=== PATIENT | male | born 1995 | race African-American/Black ===

== ENCOUNTER 2017-04-14 11:11 | Emergency (ER) | payer MEDICAID ==
[2017-04-14 11:22] VITALS: BP 145/80
[2017-04-14] MEDS ORDERED: Acetaminophen/oxyCODONE 325-5 MG Tab PO ONE (11:40)
--- NOTE | 2017-04-14 11:50 | EDM.PDOC ---
ED HPI GENERAL MEDICAL PROBLEM - General Chief Complaint: Lower Extremity Injury/Pain Stated Complaint: RIGHT LEG PAIN Time Seen by Provider: 04/14/17 11:30 Source of Information: Reports: Patient History Limitations: Reports: No Limitations - History of Present Illness INITIAL COMMENTS - FREE TEXT/NARRATIVE: 21-year-old male presents for evaluation and treatment of right leg pain. Patient reports the pain first started about 4 days ago. He reports pain in the right calf, swelling, and decreased range of motion due to pain and bruising. He denies any chest pain or shortness of breath. Over the last 4 days the patient has been driving to [place] from [place]. He is now relocated to [place]. Patient has a history of DVT. Last DVT was about 4 years ago. States that this feels similar to the previous DVT. He is unsure if he has any coagulation disorders such as von Willebrand's, protein C or protein S. Previously was on Coumadin. States that he was started on xeralto but was later switched to Coumadin. This was bridged with Lovenox. He went off the Coumadin about one year ago. He states that his family doctor told him to take a full 325 aspirin 2 to 3 times a day. He states that he has not been taking this as told. States over the last few days he has taken a few 81 mg aspirin. This has not helped with the pain. Treatments PROMOTIONAL REPRESENTATIVE: Reports: Other (see below) Other Treatments PROMOTIONAL REPRESENTATIVE: took 81 mg this morning of aspirin Right Leg Pain Score (Numeric/FACES): 10 - Related Data Allergies Allergy/AdvReac Type Severity Reaction Status Date / Time No Known Allergies Allergy Verified 04/14/17 11:26 Home Meds: Home Meds Acetaminophen/oxyCODONE [Percocet 325-5 MG] 1 tab PO Q4H #20 tablet 04/14/17 [Rx ] Apixaban [Eliquis] 5 mg PO BID #60 tablet 04/14/17 [Rx] Past Medical History Cardiovascular History: Reports: Other (See Below) Other Cardiovascular History: DVT Social & Family History - Tobacco Use Smoking Status *Q: Never Smoker - Caffeine Use Caffeine Use: Reports: Soda, Tea - Recreational Drug Use Recreational Drug Type: Reports: Marijuana/Hashish Review of Systems - Review of Systems Review Of Systems: See Below Respiratory: Denies: Shortness of Breath Cardiovascular: Denies: Chest Pain Musculoskeletal: Reports: Leg Pain (right), Other (right leg swelling) Skin: Reports: Bruising (right calf) ED EXAM, GENERAL - Physical Exam Exam: See Below Exam Limited By: No Limitations General Appearance: Alert, WD/WN, No Apparent Distress Respiratory/Chest: No Respiratory Distress Cardiovascular: Normal Peripheral Pulses, Regular Rate, Rhythm Peripheral Pulses: 2+: Posterior Tibial (L), Posterior Tibial (R), Dorsalis Pedis (L), Dorsalis Pedis (R) Extremities: Zenaida's Sign (right), Leg Pain (right), Other (right leg swelling) Neurological: Alert, Oriented, Normal Cognition Psychiatric: Normal Affect, Normal Mood Skin Exam: Warm, Dry, Intact, Ecchymosis (right proximal medial lower leg) Course - Vital Signs Last Recorded V/S: Last Vital Signs Temp 37.3 C 04/14/17 11:21 Pulse 102 H 04/14/17 11:21 Resp 20 04/14/17 11:21 BP 145/80 H 04/14/17 11:21 Pulse Ox 95 04/14/17 11:21 - Orders/Labs/Meds Orders: Active Orders 24 hr Category Date Time Status VL Duplex Lwr Ext Veins Ltd Rt [US] Stat Exams 04/14/17 11:40 Taken Labs: Laboratory Tests 04/14/17 04/14/17 04/14/17 Range/Units 11:51 11:51 11:51 WBC 13.07 H (4.23-9.07) K/mm3 RBC 4.60 L (4.63-6.08) M/mm3 Hgb 13.5 L (13.7-17.5) gm/L Hct 40.6 (40.1-51.0) % MCV 88.3 (79.0-92.2) fl MCH 29.3 (25.7-32.2) pg MCHC 33.3 (32.2-35.5) g/dl RDW Std Deviation 43.0 (35.1-43.9) fL Plt Count 163 (163-337) K/mm3 MPV 10.1 (9.4-12.3) fl Neut % (Auto) 75.6 H (34.0-67.9) % Lymph % (Auto) 13.3 L (21.8-53.1) % [place] % (Auto) 10.6 (5.3-12.2) % Eos % (Auto) 0.2 L (0.8-7.0) Baso % (Auto) 0.1 (0.1-1.2) % Neut # (Auto) 9.89 H (1.78-5.38) K/mm3 Lymph # (Auto) 1.74 (1.32-3.57) K/mm3 [place] # (Auto) 1.38 H (0.30-0.82) K/mm3 Eos # (Auto) 0.03 L (0.04-0.54) K/mm3 Baso # (Auto) 0.01 (0.01-0.08) K/mm3 PT 12.3 (8.0-13.0) SECONDS INR 1.12 APTT 30 (22-36) SECONDS Sodium 139 (136-145) mEq/L Potassium 3.2 L (3.5-5.1) mEq/L Chloride 100 (98-107) mEq/L Carbon Dioxide 30 (21-32) mEq/L Anion Gap 12.2 (5-15) BUN 9 (7-18) mg/dL Creatinine 1.1 (0.7-1.3) mg/dL Est Cr Clr Drug Dosing 112.19 mL/min Estimated GFR (MDRD) > 60 (>60) mL/min BUN/Creatinine Ratio 8.2 L (14-18) Glucose 93 (74-106) mg/dL Calcium 9.0 (8.5-10.1) mg/dL Total Bilirubin 1.0 (0.2-1.0) mg/dL AST 25 (15-37) U/L ALT 26 (16-63) U/L Alkaline Phosphatase 59 (46-116) U/L Total Protein 8.2 (6.4-8.2) g/dl Albumin 3.3 L (3.4-5.0) g/dl Globulin 4.9 gm/dL Albumin/Globulin Ratio 0.7 L (1-2) Meds: Medications Discontinued Medications Generic Name Dose Route Start Last Admin Trade Name Freq PRN Reason Stop Dose Admin Apixaban 10 mg 04/14/17 14:11 04/14/17 14:18 Eliquis PO 04/14/17 14:12 10 mg ONETIME ONE Administration Oxycodone/Acetaminophen 1 tab 04/14/17 11:40 04/14/17 11:49 Percocet 325-5 Mg PO 04/14/17 11:41 1 tab ONETIME ONE Administration - Radiology Interpretation Free Text/Narrative:: Ultrasound of the right leg impression per [facility]rad: deep venous thrombosis in the superficial femoral vain and popliteal vein - Re-Assessments/Exams Free Text/Narrative Re-Assessment/Exam: 04/14/17 14:32 labs returned. wbc is 13.07, hgb is 13.5 and plts are 163 sodium is 139, potassium is 3.2, chloride is 100. anion gap is 12.2. glucose is 93 pt is 12.3, INR is 1.12 ptt is 30 Reviewed the labs and ultrasound results with the patient. pain improved with the percocet. Plan to discharge home on eliquis, no bridging needed. Will send home with crutches for comfort. Follow-up with family med this week. Percocet for pain. Instructed to return to the ER immediately if he develops chest pain, shortness of breath, hemptysis, etc. Departure - Departure Time of Disposition: 14:40 Disposition: Home, Self-Care 01 Condition: Good Clinical Impression: Superficial thrombosis of lower extremity Qualifiers: Laterality: right Qualified Code(s): I82.811 - Embolism and thrombosis of superficial veins of right lower extremities Deep venous thrombosis Qualifiers: DVT location: lower extremity Affected thrombotic vein of extremity: other lower extremity vein Chronicity: acute Laterality: right Qualified Code(s): I82.491 - Acute embolism and thrombosis of other specified deep vein of right lower extremity - Discharge Information Prescriptions: Acetaminophen/oxyCODONE [Percocet 325-5 MG] 1 tab PO Q4H #20 tablet Apixaban [Eliquis] 5 mg PO BID #60 tablet Instructions: Deep Vein Thrombosis Referrals: PCP,Not In Area [Ordering Only Provider] - Liam Mendez [Physician] - Forms: ED Department Discharge Additional Instructions: you were given medication the ER that can affect your ability to drive and operate machinery. Do not drive or operate machinery within 12 hours of taking prescription narcotic pain medication. Take the eliquis as prescribed. 2 tabs or 10 mg twice a day for 1 week. first dose was given in the ER. Start your prescription tonight. After one week take 5 mg or 1 tab twice a day until instructed otherwise. Percocet 1 or 2 tabs every 4-6 hours as needed for severe pain. Percocet can be habit-forming, I recommend you take as few of these as needed to control your pain. Do not drive or operate machinery within 12 hours of taking the Percocet. Avoid massaging the leg, squeezing the leg or compressing the leg. No strenuous activity. No running, heavy lifting, etc. Crutches as needed to help avoid pain. Follow up with family medicine this week. Recommend Dr. Hays at the [facility]. Call [phone] to schedule with him. I recommend that you review your old records with him and if necessary you may require additional testing. Please return to the ER if your symptoms change or worsen. In particular like to see you for chest pain, shortness of breath, coughing up blood or any other concerning symptom. - My Orders Last 24 Hours: My Active Orders 04/14/17 11:40 VL Duplex Lwr Ext Veins Ltd Rt [US] Stat - Assessment/Plan Last 24 Hours: My Active Orders 04/14/17 11:40 VL Duplex Lwr Ext Veins Ltd Rt [US] Stat
[2017-04-14] MEDS ORDERED: Apixaban 5 MG Tab PO ONE (14:11)
--- NOTE | 2017-04-15 08:36 | US ---
Right lower extremity deep venous ultrasound: Duplex and color flow imaging was obtained of the right common femoral, greater saphenous, superficial femoral, popliteal, posterior tibial and peroneal veins. Left common femoral vein also was evaluated. Findings: Thrombus is identified within the superficial femoral vein and popliteal vein. Vessels below the knee are not optimally seen. Left common femoral vein is patent. Impression: 1. Findings compatible with deep venous thrombosis within the right superficial femoral and popliteal vein. This clot appears to be acute. Diagnostic code #5 Agree with preliminary report issued by [facility] ([facility] preliminary report dictated on 04/14/17, 3:00 PM Central Time)
== END 2017-04-14 14:42 | disposition home or self-care (01) ==
LOC: JD.ED 11:11
DX: I82.811 Embolism and thrombosis of superficial veins of right lower extremity (principal); I82.491 Acute embolism and thrombosis of other specified deep vein of right lower extremity
CPT/HCPCS: 36415; 80053; 85025; 85610; 85730; 93971; 99284; A9270

== ENCOUNTER 2017-04-17 11:11 | Emergency (ER) | payer MEDICAID ==
[2017-04-17] MEDS ORDERED: Enoxaparin 80 MG/0.8 ML Syringe SUBCUT ONE (12:20)
[2017-04-17] MEDS ORDERED: Sodium Chloride 0.9% 10 ML Syringe FLUSH PRN (12:20)
[2017-04-17] MEDS ORDERED: Acetaminophen/oxyCODONE 325-5 MG Tab PO ONE ×2 (12:33→12:35)
--- NOTE | 2017-04-17 12:33 | EDM.PDOC ---
ED HPI GENERAL MEDICAL PROBLEM - General Chief Complaint: Lower Extremity Injury/Pain Stated Complaint: R LEG PAIN DUE TO BLOOD CLOT Time Seen by Provider: 04/17/17 12:03 Source of Information: Reports: Patient, Old Records (recent ER visit) History Limitations: Reports: No Limitations - History of Present Illness INITIAL COMMENTS - FREE TEXT/NARRATIVE: 21-year-old male presents for treatment of the DVT. Patient was seen by myself in the ER on Saturday, April 13, 2017. He was found to have extensive DVT. He was given a 10 mg dose of eliquis here in the ER. He was prescribed eliquis, Percocet for pain and was provided with crutches as he felt it was too difficult to walk on. Patient presented today as he was unable to afford eliquis. He states he has been eating apples and garlic in the meantime an effort to thin his blood. He denies any current chest pain, shortness of breath, nausea, vomiting or abdominal pain. He reports continued pain and swelling to the right leg. Patient states that he feels he made a mistake leaving on Saturday. He feels that he should've been admitted to the hospital on Saturday. Patient has a history of DVT and was admitted to hospital four years ago for DVT. I educated him on his visit on Saturday that there would be no further intervention other than the eliquis and the pain medication, which he can take at home. Location: Reports: Lower Extremity, Right Right Leg Pain Score (Numeric/FACES): 8 - Related Data Allergies Allergy/AdvReac Type Severity Reaction Status Date / Time No Known Allergies Allergy Verified 04/17/17 11:18 Home Meds: Home Meds Acetaminophen/oxyCODONE [Percocet 325-5 MG] 1 tab PO Q4H #20 tablet 04/14/17 [Rx ] Apixaban [Eliquis] 5 mg PO BID #60 tablet 04/14/17 [Rx] Dabigatran Etexilate Mesylate [Pradaxa] 150 mg PO BID #60 capsule 04/17/17 [Rx] Enoxaparin Sodium [Lovenox] 80 mg SQ DAILY #3.2 ml 04/17/17 [Rx] Potassium Chloride 20 meq PO DAILY #5 tablet.er 04/17/17 [Rx] Past Medical History - Past Health History Medical/Surgical History: Denies Medical/Surgical History Cardiovascular History: Reports: Other (See Below) Other Cardiovascular History: DVT Social & Family History - Tobacco Use Smoking Status *Q: Never Smoker - Caffeine Use Caffeine Use: Reports: Soda, Tea - Recreational Drug Use Recreational Drug Use: No Recreational Drug Type: Reports: Marijuana/Hashish Review of Systems - Review of Systems Review Of Systems: See Below Respiratory: Denies: Shortness of Breath Cardiovascular: Denies: Chest Pain Musculoskeletal: Reports: Leg Pain (right), Other (right leg swelling) Neurological: Reports: Difficulty Walking ED EXAM, GENERAL - Physical Exam Exam: See Below Exam Limited By: No Limitations General Appearance: Alert, WD/WN, No Apparent Distress Respiratory/Chest: No Respiratory Distress, Lungs Clear, Normal Breath Sounds Cardiovascular: Normal Peripheral Pulses, Regular Rate, Rhythm, No Murmur Peripheral Pulses: 2+: Posterior Tibial (L), Posterior Tibial (R), Dorsalis Pedis (L), Dorsalis Pedis (R) Extremities: Other (right leg swelling) Neurological: Alert, Oriented, Normal Cognition Psychiatric: Normal Affect, Normal Mood Skin Exam: Warm, Dry, Normal Color Course - Vital Signs Last Recorded V/S: Last Vital Signs Temp 36.8 C 04/17/17 11:19 Pulse 87 04/17/17 14:22 Resp 16 04/17/17 14:22 BP 146/90 H 04/17/17 14:22 Pulse Ox 99 04/17/17 14:22 - Orders/Labs/Meds Orders: Active Orders 24 hr Category Date Time Status Peripheral IV Care [RC] . DIRECTED Care 04/17/17 12:21 Active Peripheral IV Insertion Adult [OM.PC] Routine Oth 04/17/17 12:20 Ordered Labs: Laboratory Tests 04/17/17 04/17/17 04/17/17 Range/Units 12:45 12:45 12:45 WBC 8.86 (4.23-9.07) K/mm3 RBC 4.51 L (4.63-6.08) M/mm3 Hgb 13.2 L (13.7-17.5) gm/L Hct 39.9 L (40.1-51.0) % MCV 88.5 (79.0-92.2) fl MCH 29.3 (25.7-32.2) pg MCHC 33.1 (32.2-35.5) g/dl RDW Std Deviation 42.3 (35.1-43.9) fL Plt Count 228 (163-337) K/mm3 MPV 9.3 L (9.4-12.3) fl Neut % (Auto) 67.5 (34.0-67.9) % Lymph % (Auto) 18.2 L (21.8-53.1) % [place] % (Auto) 13.7 H (5.3-12.2) % Eos % (Auto) 0.2 L (0.8-7.0) Baso % (Auto) 0.2 (0.1-1.2) % Neut # (Auto) 5.98 H (1.78-5.38) K/mm3 Lymph # (Auto) 1.61 (1.32-3.57) K/mm3 [place] # (Auto) 1.21 H (0.30-0.82) K/mm3 Eos # (Auto) 0.02 L (0.04-0.54) K/mm3 Baso # (Auto) 0.02 (0.01-0.08) K/mm3 PT 12.5 (8.0-13.0) SECONDS INR 1.14 Sodium 140 (136-145) mEq/L Potassium 3.1 L (3.5-5.1) mEq/L Chloride 100 (98-107) mEq/L Carbon Dioxide 31 (21-32) mEq/L Anion Gap 12.1 (5-15) BUN 8 (7-18) mg/dL Creatinine 1.1 (0.7-1.3) mg/dL Est Cr Clr Drug Dosing TNP Estimated GFR (MDRD) > 60 (>60) mL/min BUN/Creatinine Ratio 7.3 L (14-18) Glucose 92 (74-106) mg/dL Calcium 8.8 (8.5-10.1) mg/dL Total Bilirubin 0.8 (0.2-1.0) mg/dL AST 48 H (15-37) U/L ALT 48 (16-63) U/L Alkaline Phosphatase 54 (46-116) U/L Total Protein 8.2 (6.4-8.2) g/dl Albumin 3.0 L (3.4-5.0) g/dl Globulin 5.2 gm/dL Albumin/Globulin Ratio 0.6 L (1-2) Meds: Medications Discontinued Medications Generic Name Dose Route Start Last Admin Trade Name Walter PRN Reason Stop Dose Admin Enoxaparin Sodium 80 mg 04/17/17 12:20 04/17/17 12:39 Lovenox SUBCUT 04/17/17 12:21 80 mg ONETIME ONE Administration Oxycodone/Acetaminophen 1 tab 04/17/17 12:33 04/17/17 12:39 Percocet 325-5 Mg PO 04/17/17 12:34 1 tab ONETIME ONE Administration Oxycodone/Acetaminophen 1 tab 04/17/17 12:35 04/17/17 12:39 Percocet 325-5 Mg PO 04/17/17 12:36 Not Given ONETIME ONE Potassium Chloride 20 meq 04/17/17 13:23 04/17/17 13:49 Klor-Con M20 PO 04/17/17 13:24 20 meq ONETIME ONE Administration Sodium Chloride 10 ml 04/17/17 12:20 Saline Flush FLUSH ASDIRECTED PRN Keep Vein Open - Re-Assessments/Exams Free Text/Narrative Re-Assessment/Exam: 04/17/17 11:53 I spoke with [facility] prior to seeing the patient. They informed me of a drug repository program that they have in place. There is no elquis currently available in the repository program but they do have a fair amount of Lovenox and 4 months of Pradaxa available that he may get. She reports that he may charged the shipping costs but otherwise that medication would be free of charge. It would take about 2 days to get the pradaza, lovenox is available today. I originally chose eliquis for this patient over Coumadin as I was concerned about the cost of the Lovenox and I was concerned about his compliance with getting his INR checked. 04/17/17 14:11 Labs returned. sodium is 140, potassium is 3.1, chloride is 100. anion gap is 12.1 and creatinine is 1.1 wbc is 8.86, hgb is 13.2 and plts are 228 pt is 12.5, INR is 1.14 I discussed the case with case management. He would meet criteria for observation. I discussed the case with social work. Given that he does not have Medicaid insurance at this time it is possible that his hospital stay would not be covered. It is also possible that they Medicaid would not pay for his medications and observation status anyways so he will be discharged even more. I do not feel he needs to come into the hospital today. I feel that he can safely be managed as an outpatient. He has received his first injection of Lovenox here in the ED. I will have him take Lovenox for the next 4 days. He may then start the Pradaxa after the Lovenox. This should be on 04/22/17. We will discharge him home. Discharge instructions as documented. Departure - Departure Time of Disposition: 14:13 Disposition: Home, Self-Care 01 Condition: Fair Clinical Impression: Hypokalemia Deep venous thrombosis Qualifiers: DVT location: lower extremity Affected thrombotic vein of extremity: other lower extremity vein Chronicity: acute Laterality: right Qualified Code(s): I82.491 - Acute embolism and thrombosis of other specified deep vein of right lower extremity Superficial thrombosis of lower extremity Qualifiers: Laterality: right Qualified Code(s): I82.811 - Embolism and thrombosis of superficial veins of right lower extremities - Discharge Information Prescriptions: Dabigatran Etexilate Mesylate [Pradaxa] 150 mg PO BID #60 capsule Enoxaparin Sodium [Lovenox] 80 mg SQ DAILY #3.2 ml Potassium Chloride 20 meq PO DAILY #5 tablet.er Referrals: PCP,Rosana [Primary Care Provider] - Liam Mendez [Physician] - Forms: ED Department Discharge Additional Instructions: You were given medication in the ER that can affect your ability to drive and operate machinery. Do not drive or operate machinery within the next 12 hours. Take your medications as prescribed. If you take your medications as prescribed they will help with your pain and will resolve your DVT. Go to [place] [facility] in the [facility] [place] [facility] ext to [employer]. Tell them you need to get medications from the drug repository program. You need Lovenox daily for the next 4 days. After 4 additional days of Lovenox, 5 days total, as you received your first injection here in the ER. Start Pradaxa. Take the Lovenox around the same time every day, around 12:30. When you start Pradaxa take this 2 hours earlier, so at 10:30 AM. Potassium for your low potassium of 3.1 daily for the next 5 days. Percocet as needed for pain. A prescription for Percocet should cost around $15- $20. Follow-up with family medicine this week or early next week. Recommend Dr. Hays. Please call [phone] to schedule with him. You will need to follow -up with family med for additional refills of your pradaxa. Continue to follow your current instructions were given for your DVT. Do not squeeze the calf. Do not massage half. Avoid running and heavy lifting. Walking as tolerated. Please return to the ER if your symptoms change or worsen. - My Orders Last 24 Hours: My Active Orders 04/17/17 12:20 Peripheral IV Insertion Adult [OM.PC] Routine 04/17/17 12:21 Peripheral IV Care [RC] . DIRECTED - Assessment/Plan Last 24 Hours: My Active Orders 04/17/17 12:20 Peripheral IV Insertion Adult [OM.PC] Routine 04/17/17 12:21 Peripheral IV Care [RC] . DIRECTED
[2017-04-17] MEDS ORDERED: Potassium Chloride 20 MEQ Tab.ER PO ONE (13:23)
[2017-04-17 14:24] VITALS: BP 146/90
== END 2017-04-17 14:25 | disposition home or self-care (01) ==
LOC: JD.ED 11:11
DX: I82.811 Embolism and thrombosis of superficial veins of right lower extremity (principal); I82.491 Acute embolism and thrombosis of other specified deep vein of right lower extremity; E87.6 Hypokalemia; Z79.899 Other long term (current) drug therapy
CPT/HCPCS: 36415; 80053; 85025; 85610; 96372; 99283; A9270; J1650

== ENCOUNTER 2017-09-17 13:52 | Emergency (ER) | payer MEDICAID ==
[2017-09-17 14:01] VITALS: BP 133/76
--- NOTE | 2017-09-17 17:13 | EDM.PDOC ---
ED HPI GENERAL MEDICAL PROBLEM - General Chief Complaint: Lower Extremity Injury/Pain Stated Complaint: PAIN AND SWELLING IN LEG SENT FROM [facility] Time Seen by Provider: 09/17/17 14:30 Source of Information: Reports: Patient History Limitations: Reports: No Limitations - History of Present Illness INITIAL COMMENTS - FREE TEXT/NARRATIVE: 21-year-old male presents to the ED with concern is that he may have developed a deep venous thrombosis in his right leg once again. Patient has a history of DVT occurrence in the left leg once and twice in the right leg. He has been treated with Coumadin for the first DVT in his left leg and then Xarelto on the last 2 occasions. Currently he's been having pain in his right medial calf for about a week. He can make a touch however when he rubs his hand along his leg. Denies feeling short of breath or any pleuritic chest pain or hemoptysis. 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) Right Lower Leg Pain Score (Numeric/FACES): 7 - Related Data Allergies Allergy/AdvReac Type Severity Reaction Status Date / Time No Known Allergies Allergy Verified 09/17/17 14:01 Home Meds: Home Meds Dabigatran Etexilate Mesylate [Pradaxa] 150 mg PO BID #60 capsule 04/17/17 [Rx] Prednisone [IJD: predniSONE] 20 mg PO BID #10 tab 09/17/17 [Rx] Rivaroxaban [Xarelto] 10 mg PO DAILY #21 tablet 09/17/17 [Rx] oxyCODONE HCl/Acetaminophen [Percocet 5-325 mg Tablet] 1 - 2 each PO Q4H PRN # 12 tablet 09/17/17 [Rx] Past Medical History - Past Health History Medical/Surgical History: Denies Medical/Surgical History Cardiovascular History: Reports: Other (See Below) Other Cardiovascular History: DVT Hematologic History: Reports: Other (See Below) Other Hematologic History: DVT---past, unsure if has clotting history. Social & Family History - Family History Family Medical History: Noncontributory - Tobacco Use Smoking Status *Q: Never Smoker - Caffeine Use Caffeine Use: Reports: None - Recreational Drug Use Recreational Drug Use: Yes Drug Use in Last 12 Months: Yes Recreational Drug Type: Reports: Marijuana/Hashish Recreational Drug Use Frequency: Daily - Living Situation & Occupation Living situation: Reports: Single Occupation: Employed Review of Systems - Review of Systems Review Of Systems: See Below Constitutional: Reports: No Symptoms Eyes: Reports: No Symptoms Ears: Reports: No Symptoms Nose: Reports: No Symptoms Mouth/Throat: Reports: No Symptoms Respiratory: Reports: No Symptoms Cardiovascular: Reports: No Symptoms GI/Abdominal: Reports: No Symptoms Genitourinary: Reports: No Symptoms Musculoskeletal: Reports: Leg Pain (Right medial calf pain for the) Skin: Reports: Erythema (Slight erythema along the distribution of the greater saphenous vein medial right calf.) Neurological: Reports: No Symptoms Psychiatric: Reports: No Symptoms ED EXAM, GENERAL - Physical Exam Exam: See Below Exam Limited By: No Limitations General Appearance: Alert, WD/WN, No Apparent Distress Respiratory/Chest: No Respiratory Distress, Lungs Clear, Normal Breath Sounds, No Accessory Muscle Use Cardiovascular: Normal Peripheral Pulses, Regular Rate, Rhythm, No Edema, No Gallop, No Murmur GI/Abdominal: Normal Bowel Sounds, Soft, Non-Tender, No Organomegaly, No Distention, No Abnormal Bruit Extremities: Other (Examination of the right lower leg reveals faint erythema and tenderness along the distribution of the greater saphenous vein from the ankle to the knee. I could not identify any significant inflammation of the greater saphenous vein distribution above the knee to the groin. There is slight edema on palpation of both lower extremities I believe from previous DVTs. Has good dorsalis pedis and posterior tibial pulses.) Neurological: Alert, Oriented, CN II-XII Intact, Normal Cognition, Normal Gait Course - Vital Signs Last Recorded V/S: Last Vital Signs Temp 36.1 C 09/17/17 13:58 Pulse 67 09/17/17 13:58 Resp 18 09/17/17 13:58 BP 133/76 09/17/17 13:58 Pulse Ox 100 09/17/17 13:58 - Orders/Labs/Meds Orders: Active Orders 24 hr Category Date Time Status VL Duplex Lwr Ext Veins Ltd Rt [US] Stat Exams 09/17/17 14:59 Taken Labs: Laboratory Tests 09/17/17 09/17/17 09/17/17 Range/Units 15:24 15:24 15:24 WBC 5.10 (4.23-9.07) K/mm3 RBC 4.68 (4.63-6.08) M/mm3 Hgb 13.8 (13.7-17.5) gm/L Hct 42.5 (40.1-51.0) % MCV 90.8 (79.0-92.2) fl MCH 29.5 (25.7-32.2) pg MCHC 32.5 (32.2-35.5) g/dl RDW Std Deviation 47.2 H (35.1-43.9) fL Plt Count 166 (163-337) K/mm3 MPV 10.8 (9.4-12.3) fl Neutrophils % (Manual) 67 H (40-60) % Band Neutrophils % 0 (0-10) % Lymphocytes % (Manual) 18 L (20-40) % Atypical Lymphs % 2 % Monocytes % (Manual) 12 H (2-10) % Eosinophils % (Manual) 0 L (0.8-7.0) % Basophils % (Manual) 1 (0.2-1.2) Platelet Estimate Adequate Plt Morphology Comment Normal Anisocytosis 1+ slight Microcytosis 1+ slight Macrocytosis 1+ slight RBC Morph Comment Abnormal D-Dimer, Quantitative 2.83 H (0.19-0.59) mg/L Sodium 142 (136-145) mEq/L Potassium 3.6 (3.5-5.1) mEq/L Chloride 107 (98-107) mEq/L Carbon Dioxide 29 (21-32) mEq/L Anion Gap 9.6 (5-15) BUN 9 (7-18) mg/dL Creatinine 0.9 (0.7-1.3) mg/dL Est Cr Clr Drug Dosing 137.12 mL/min Estimated GFR (MDRD) > 60 (>60) mL/min BUN/Creatinine Ratio 10.0 L (14-18) Glucose 45 L (74-106) mg/dL Calcium 8.9 (8.5-10.1) mg/dL Total Bilirubin 1.0 (0.2-1.0) mg/dL AST 28 (15-37) U/L ALT 32 (16-63) U/L Alkaline Phosphatase 59 (46-116) U/L Total Protein 7.1 (6.4-8.2) g/dl Albumin 3.5 (3.4-5.0) g/dl Globulin 3.6 gm/dL Albumin/Globulin Ratio 1.0 (1-2) - Radiology Interpretation Free Text/Narrative:: 21-year-old male who has a 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 The last week he's been having some pain along the medial aspect of his right calf and is concerning him that he might be developing a another DVT. Apparently has some propensity to thrombolysis. He can't remember the event is name of the disease that he has. It's unclear to me why he is not on and a thrombotic agents at all times. Examination today however shows mostly evidence of superficial thrombophlebitis in the distribution of the greater saphenous vein on the right medial calf. However I' m going to have a Doppler ultrasound performed to rule out DVT due to his history. - Re-Assessments/Exams Free Text/Narrative Re-Assessment/Exam: 09/17/17 17:50: Doppler ultrasound has been completed. The deep veins show partial compressibility of proximal distal femoral vein and popliteal vein echogenic material within these vessels thrombus was reported her previously. There is no DVT in the visualized common femoral-femoral or proximal deep femoral or popliteal veins at this time the veins demonstrate normal color flow or normally compressible with normal phasic flow ordered augmentation response. Superficial veins show noncompressible hypoechoic echogenicity in the superficial vessel of right medial calf at site of patient's pain compatible with superficial thrombophlebitis. The findings were most consistent with chronic deep venous thrombosis involving portions of femoral vein and popliteal vein and superficial thrombophlebitis in the calf. Therefore decision made to place him on Xarelto 10 mg once daily for the next 3 weeks. This should prevent propagation into the deep venous system. Will elevate his leg and apply heat packs to the area. Note given to excuse him from work for the next 3 days. 15 tablets of Percocet were provided 01/23/25 milligrams strength for pain relief as needed. I'm also place him on a short course of prednisone 20 mg twice a day for 5 days which will hopefully hasten the relief of inflammation and lessen his pain severity may build to return to work. Follow-up if not markedly improved in 5 days time Departure - Departure Time of Disposition: 17:12 Disposition: Home, Self-Care 01 Condition: Fair Clinical Impression: Superficial thrombophlebitis of right leg - Discharge Information Prescriptions: oxyCODONE HCl/Acetaminophen [Percocet 5-325 mg Tablet] 1 - 2 each PO Q4H PRN # 12 tablet PRN Reason: pain relief. Prednisone [IJD: predniSONE] 20 mg PO BID #10 tab Rivaroxaban [Xarelto] 10 mg PO DAILY #21 tablet Referrals: PCP,None [Primary Care Provider] - Forms: ED Department Discharge, ED Return to Work/School Form Additional Instructions: Evaluation in the emergency him today in regards to increasing pain and palpable swelling along the medial aspect of your right calf. History of DVT in both legs in the past. Suggest active superficial thrombophlebitis along the greater saphenous vein below the knee to the ankle. This is confirmed by ultrasound of the leg indicating the clotting is mostly in the superficial system. There is evidence of scarring in the femoral veins from previous DVTs. Due to her history it is suggest that you take anti-thrombotic agent Xarelto-- 10 mg once daily for the next 3 weeks to prevent further clotting and breakdown current clot in the leg. She meant for you as hot packs to the area one half hour out of every 4 hours until better. Use Deltasone 20 mg with breakfast and supper for the next 5 days to relieve pain and inflammation along this vein. Elevate the foot is much as possible for the next 3 days. - My Orders Last 24 Hours: My Active Orders 09/17/17 14:59 VL Duplex Lwr Ext Veins Ltd Rt [US] Stat - Assessment/Plan Last 24 Hours: My Active Orders 09/17/17 14:59 VL Duplex Lwr Ext Veins Ltd Rt [US] Stat
--- NOTE | 2017-09-18 10:02 | US ---
Right lower extremity deep venous ultrasound: Duplex and color flow imaging was obtained of the right common femoral, proximal greater saphenous, superficial femoral, popliteal, posterior tibial and peroneal veins. Left common femoral vein was also evaluated. Comparison: Prior right lower extremity venous ultrasound of 04/14/17. Findings: Partially occluding clot identified within the right common femoral and popliteal veins felt to represent chronic recannulized clot that was acute on prior study of 04/14/17. No acute clot seen within the right lower extremity. There is superficial thrombophlebitis felt to be present within the calf. Impression: 1. Superficial thrombophlebitis within the calf. 2. Chronic appearing and partially occluding clot within the right common femoral and popliteal veins. Diagnostic code #3 I agree with preliminary report issued by [facility] ([facility] report finalized on 09/17/17, 7:06 PM Central Time)
== END 2017-09-17 17:40 | disposition home or self-care (01) ==
LOC: JD.ED 13:52
DX: I80.01 Phlebitis and thrombophlebitis of superficial vessels of right lower extremity (principal)
CPT/HCPCS: 36415; 80053; 85025; 85379; 93971-26-RT; 93971-RT; 99283; 99284-25

== ENCOUNTER 2020-03-24 10:34 | Emergency (ER) | payer SELFPAY ==
[2020-03-24 10:48] VITALS: BP 140/88; PULSE 71
[2020-03-24] MEDS ORDERED: Ondansetron 4 MG Tab.DIS PO ONE (11:15)
[2020-03-24] MEDS ORDERED: HYDROmorphone 1 MG/ML Syringe IM ONE (11:15)
--- NOTE | 2020-03-24 11:38 | EDM.PDOC ---
ED HPI GENERAL MEDICAL PROBLEM - General Chief Complaint: Lower Extremity Injury/Pain Stated Complaint: POSS BLOOD CLOT IN LEFT LEG Time Seen by Provider: 03/24/20 11:03 Source of Information: Reports: Patient, RN Notes Reviewed History Limitations: Reports: No Limitations - History of Present Illness INITIAL COMMENTS - FREE TEXT/NARRATIVE: Patient is a 24-year-old male who presents to the ED for the evaluation of a possible blood clot. Patient notes that he does have a history of DVTs in his legs, that he has been on blood thinners before, but he is not taking them currently. He does state for the last 3 days he has had pain to his left outer lower leg, that is been similar in nature to his blood clots in the past. He states that the pain is a sharp stabbing pain, worsens when he stands on it, but gets better when he elevates his leg, or stays off the leg entirely. Patient denies any trauma to the area, it does not look reddened, it is tender to the touch. Patient notes his last blood clot was about 1-1/2 years ago. He also states that he believes he has a family history of clotting issues as he states his father from a pulmonary embolus, but he has not had any sort of work-up for clotting issues. He denies any other sick-like symptoms, fever/chills, cough/shortness of breath, nausea/vomiting/diarrhea. Patient did not take anything for pain management for this prior to coming to the ER. Left Lower Leg Pain Score (Numeric/FACES): 8 - Related Data Allergies Allergy/AdvReac Type Severity Reaction Status Date / Time No Known Allergies Allergy Verified 03/24/20 10:48 Home Meds: Home Meds Rivaroxaban [Xarelto] 15 mg PO BID 21 Days #42 tab 03/24/20 [Rx] Rivaroxaban [Xarelto] 20 mg PO DAILY #21 tablet 03/24/20 [Rx] Past Medical History Cardiovascular History: Reports: Blood Clots/VTE/DVT, Other (See Below) Other Cardiovascular History: DVT Hematologic History: Reports: Other (See Below) Other Hematologic History: DVT---past, unsure if has clotting history. Social & Family History - Family History Respiratory: Reports: PE (states fathe from PE) - Tobacco Use Smoking Status *Q: Former Smoker Years of Tobacco use: 1 Used Tobacco, but Quit: Yes Month/Year Tobacco Last Used: 03/2019 - Caffeine Use Caffeine Use: Reports: Energy Drinks Caffeine Use Comment: every other day - Recreational Drug Use Recreational Drug Use: Yes Drug Use in Last 12 Months: Yes Recreational Drug Type: Reports: Marijuana/Hashish Recreational Drug Use Frequency: Daily - Living Situation & Occupation Living situation: Reports: Single Occupation: Employed Review of Systems - Review of Systems Review Of Systems: Comprehensive ROS is negative, except as noted in HPI. ED EXAM, GENERAL - Physical Exam Exam: See Below Exam Limited By: No Limitations General Appearance: Alert, WD/WN, No Apparent Distress Respiratory/Chest: No Respiratory Distress, Lungs Clear, Normal Breath Sounds, No Accessory Muscle Use, Chest Non-Tender Cardiovascular: Normal Peripheral Pulses, Regular Rate, Rhythm, No Murmur Peripheral Pulses: 3+: Dorsalis Pedis (L), Dorsalis Pedis (R) Back Exam: Normal Inspection, Full Range of Motion Extremities: Normal Inspection, Normal Range of Motion, No Pedal Edema, Normal Capillary Refill, Other (Patient has tenderness over the area of concern on his left lower lateral leg.) Neurological: Alert, Oriented, Normal Cognition, No Motor/Sensory Deficits Psychiatric: Normal Affect, Normal Mood Skin Exam: Warm, Dry, Intact, Normal Color, No Rash Course - Vital Signs Last Recorded V/S: Last Vital Signs Temp 98.3 F 03/24/20 10:42 Pulse 71 03/24/20 10:42 Resp 16 03/24/20 10:42 BP 140/88 03/24/20 10:42 Pulse Ox 97 03/24/20 10:42 - Orders/Labs/Meds Meds: Medications Discontinued Medications Generic Name Dose Route Start Last Admin Trade Name Walter PRN Reason Stop Dose Admin Hydromorphone HCl 1 mg 03/24/20 11:15 03/24/20 11:32 Dilaudid IM 03/24/20 11:16 1 mg ONETIME ONE Administration Ondansetron HCl 4 mg 03/24/20 11:15 03/24/20 11:34 Zofran Odt PO 03/24/20 11:16 4 mg ONETIME ONE Administration - Re-Assessments/Exams Free Text/Narrative Re-Assessment/Exam: 03/24/20 11:37 Patient presents to the ED for possible blood clot. We will order ultrasound of the area to rule out or rule in blood clot. He is not on any blood thinners currently, but does have a history of blood clots, so is highly likely that he is gotten 1 again. I did urge him to follow-up with a primary care provider, for testing for predisposition to clots as it seems that he has a genetic defect in his family after talking with him. He does state he will follow-up with a provider for further management. 03/24/20 12:38 Ultrasound does demonstrate a partial occluding thrombus throughout the left lower extremity. Patient will be started on Xarelto again at this time. I did again urge to him the importance of following up with a care provider to check his coagulation studies for further management. He states he will follow through with this. Departure - Departure Time of Disposition: 12:38 Disposition: Home, Self-Care 01 Condition: Good Clinical Impression: Deep vein thrombosis (DVT) of left lower extremity Qualifiers: Affected thrombotic vein of extremity: other lower extremity vein Chronicity: acute Qualified Code(s): I82.492 - Acute embolism and thrombosis of other specified deep vein of left lower extremity - Discharge Information *PRESCRIPTION DRUG MONITORING PROGRAM REVIEWED*: No *COPY OF PRESCRIPTION DRUG MONITORING REPORT IN PATIENT CHANTALE: No Prescriptions: Rivaroxaban [Xarelto] 15 mg PO BID 21 Days #42 tab Rivaroxaban [Xarelto] 20 mg PO DAILY #21 tablet Instructions: Bleeding Precautions When on Anticoagulant Therapy, Adult Referrals: Bruna Mckeon NP [Nurse Practitioner] - Forms: ED Department Discharge Additional Instructions: You were evaluated in the ER today regarding your possible left lower leg blood clot. Ultrasound was obtained, and this does demonstrate a partial occluding thrombus throughout the left lower extremity. You will need to be started back on Xarelto, dosing will be 15mg 2 times a day for 21 days, and then 20 mg daily after the initial twice daily dosing is complete. You may try to use heat packs to the area, elevate the leg as much as possible to provide further pain relief, you may also try 500 mg Tylenol every 6 hours as needed for further pain relief. Do not exceed more than 4000 mg Tylenol in a 24-hour time span. You will need to follow-up with a primary care provider, a referral to Bruna Mckeon NP has been provided to you for further coagulation studies. Please do so sooner rather than later, as it appears you have a predisposition to blood clots, and these can be life-threatening. Please return to the ER at any time if your symptoms change or worsen. Sepsis Event Note (ED) - Evaluation Sepsis Screening Result: No Definite Risk - Focused Exam Vital Signs: Vital Signs Temp Pulse Resp BP Pulse Ox 03/24/20 10:42 98.3 F 71 16 140/88 97
--- NOTE | 2020-03-24 12:22 | US ---
Left lower extremity deep venous ultrasound: Duplex and color Doppler evaluation was obtained of the left common femoral, superficial femoral, popliteal, posterior tibial and peroneal veins. Right common femoral vein was also evaluated. Comparison: Previous left lower extremity venous study is not available Findings: Incompletely occluding thrombus is seen throughout the left lower extremity involving the common femoral vein through the posterior tibial and peroneal veins. Right common femoral vein was patent. Impression: 1. Partial occluding thrombus throughout the left lower extremity. Diagnostic code #5 This report was dictated in MDT
== END 2020-03-24 12:58 | disposition home or self-care (01) ==
LOC: JD.ED 10:34
DX: I82.412 Acute embolism and thrombosis of left femoral vein (principal); I82.452 Acute embolism and thrombosis of left peroneal vein; I82.442 Acute embolism and thrombosis of left tibial vein; Z87.891 Personal history of nicotine dependence; Z79.01 Long term (current) use of anticoagulants
CPT/HCPCS: 93971; 96372; 99284; A9270; J1170

== ENCOUNTER 2021-10-10 17:33 | Emergency (ER) | payer SELFPAY ==
[2021-10-10 18:47] VITALS: BP 144/89; PULSE 73
[2021-10-10] MEDS ORDERED: Acetaminophen/HYDROcodone 325-5 MG Tab PO ONE (19:44)
[2021-10-10] MEDS ORDERED: Apixaban 5 MG Tab PO ONE (21:33)
== END 2021-10-10 21:58 | disposition home or self-care (01) ==
LOC: JD.ED 17:33
DX: I82.491 Acute embolism and thrombosis of other specified deep vein of right lower extremity (principal); I82.411 Acute embolism and thrombosis of right femoral vein; I82.431 Acute embolism and thrombosis of right popliteal vein; I82.441 Acute embolism and thrombosis of right tibial vein; I82.451 Acute embolism and thrombosis of right peroneal vein; Z79.01 Long term (current) use of anticoagulants
CPT/HCPCS: 36415; 80053; 85025; 85610; 93971; 99284; A9270

== ENCOUNTER 2022-04-02 11:35 | Emergency (ER) | payer SELFPAY ==
[2022-04-02 12:48] VITALS: BP 141/81; PULSE 68
== END 2022-04-02 16:35 | disposition home or self-care (01) ==
LOC: JD.ED 11:35
DX: I80.292 Phlebitis and thrombophlebitis of other deep vessels of left lower extremity (principal); Z79.899 Other long term (current) drug therapy
CPT/HCPCS: 93971-26-LT; 93971-LT; 99283

== ENCOUNTER 2022-05-09 10:50 | Emergency (ER) | payer SELFPAY | END 2022-05-09 12:45 | LOC: JD.ED 10:50 | DX: Z53.21 Procedure and treatment not carried out due to patient leaving prior to being seen by health care provider (principal) ==

== ENCOUNTER 2023-05-08 18:17 | Emergency (ER) | payer MEDICAID ==
[2023-05-08] MEDS ORDERED: Etomidate 2 MG/ML 20 ML SDV IVPUSH ONE (18:22)
[2023-05-08] MEDS ORDERED: Rocuronium 50 MG/5 ML Vial IVPUSH ONE (18:23)
[2023-05-08] MEDS ORDERED: Sodium Chloride 0.9% 1,000 ML IV SCH (18:45)
[2023-05-08 18:54] VITALS: PULSE 84
[2023-05-08 19:11] LABS: INR 1.14; PROTHROMBIN TIME 12.1 SECONDS (9.7-12.0)
[2023-05-08 19:12] LABS: PTT,PARTIAL THROMBOPLSTIN TIME 24.8 SECONDS (21.7-31.4)
[2023-05-08 19:15] LABS: A/G RATIO 1.1 (1-2); ALANINE AMINOTRANSFERASE,ALT 31 U/L (16-63); ALBUMIN 4.4 g/dl (3.4-5.0); ALKALINE PHOSPHATASE 72 U/L (46-116); ANION GAP 24.7 (5-15); ASPARTATE AMNIOTRANSFERASE,AST 34 U/L (15-37); BILIRUBIN TOTAL 1.3 mg/dL (0.2-1.0); BLOOD UREA NITROGEN,BUN 12 mg/dL (7-18); BUN/CREATININE RATIO 9.2 (14-18); CALCIUM 9.3 mg/dL (8.5-10.1); CARBON DIOXIDE,CO2 20 mEq/L (21-32); CHLORIDE,CL 103 mEq/L (98-107); CREATININE 1.3 mg/dL (0.7-1.3); ESTIMATED GFR 77 mL/min (>60); GLUCOSE RANDOM 191 mg/dL (70-99); PROTEIN TOTAL,TP 8.5 g/dl (6.4-8.2); SODIUM,NA 145 mEq/L (136-145)
[2023-05-08 19:22] LABS: BASOPHILS ABSOLUTE AUTO 0.02 K/mm3 (0.01-0.08); BASOPHILS PERCENT AUTO 0.2 % (0.1-1.2); EOSINOPHILS ABSOLUTE AUTO 0.04 K/mm3 (0.04-0.54); EOSINOPHILS PERCENT AUTO 0.4 (0.8-7.0); HEMATOCRIT 44.6 % (40.1-51.0); HEMOGLOBIN 14.4 gm/dl (13.7-17.5); IMMATURE GRAN ABSOLUTE AUTO 0.01 K/mm3 (0.00-0.10); IMMATURE GRAN PERCENT AUTO 0.1 % (<=1.0); LYMPHOCYTES ABSOLUTE AUTO 4.83 K/mm3 (1.32-3.57); LYMPHOCYTES PERCENT AUTO 51.5 % (21.8-53.1); MEAN CORPUSCULAR HEMOGLOBIN 29.8 pg (25.7-32.2); MEAN CORPUSCULAR HGB CONC 32.3 g/dl (32.2-35.5); MEAN CORPUSCULAR VOLUME 92.3 fl (79.0-92.2); MEAN PLATELET VOLUME 11.3 fl (9.4-12.3); MONOCYTES ABSOLUTE AUTO 0.95 K/mm3 (0.30-0.82); MONOCYTES PERCENT AUTO 10.1 % (5.3-12.2); NEUTROPHILS ABSOLUTE AUTO 3.53 K/mm3 (1.78-5.38); NEUTROPHILS PERCENT AUTO 37.7 % (34.0-67.9); PLATELET COUNT,PLT 190 K/mm3 (163-337); RED BLOOD CELL COUNT 4.83 M/mm3 (4.63-6.08); WHITE BLOOD CELL COUNT,WBC 9.38 K/mm3 (4.23-9.07)
[2023-05-08 19:23] LABS: POTASSIUM,K 2.7 mEq/L (3.5-5.1)
[2023-05-08] MEDS ORDERED: Midazolam 50 MG in Sodium Chloride 0.9% 40 ML IV SCH (19:30)
[2023-05-08] MEDS ORDERED: propofoL 100 ML IV SCH (19:30)
[2023-05-08 19:42] LABS: APPEARANCE,URINE CLEAR (Clear); BILIRUBIN,URINE NEGATIVE (Negative); COLOR,URINE YELLOW (Yellow); GLUCOSE,URINE NEGATIVE (Negative); KETONES,URINE NEGATIVE (Negative); LEUKOCYTE ESTERASE,URINE NEGATIVE (Negative); NITRITE,URINE NEGATIVE (Negative); OCCULT BLOOD,URINE 2+ (Negative); PROTEIN,URINE 3+ (Negative); UROBILINOGEN,URINE 0.2 (0.2-1.0)
[2023-05-08] MEDS ORDERED: Potassium Chloride 10 MEQ in Premix Bag 1 BAG IV SCH (19:45)
[2023-05-08] MEDS ORDERED: Iopamidol 612 MG/ML 100 ML Bottle IVPUSH ONE (19:49)
[2023-05-08] MEDS ORDERED: Sodium Chloride 0.9% 10 ML Syringe FLUSH ONE (19:49)
[2023-05-08 19:51] LABS: BASE EXCESS ARTERIAL -4.5 (-2-2.0); BICARBONATE,ARTERIAL 21.9 meq/L (22.0-26.0); O2 SATURATION ARTERIAL 97.7 % (96.0-97.0); PCO2 ARTERIAL 47.8 mmHg (35.0-45.0)
[2023-05-08 19:51] LABS: BARBITURATE SCREEN,URINE NEGATIVE (CUTOFF=200); BENZODIAZEPINES SCREEN,URINE NEGATIVE (CUTOFF=150); BUPRENORPHINE SCREEN,URINE NEGATIVE (CUTOFF=10); METHADONE SCREEN, URINE NEGATIVE (CUT0FF=200); METHAMPHETAMINES SCREEN, URINE NEGATIVE (CUTOFF=500); OXYCODONE SCREEN,URINE NEGATIVE (CUT0FF=100); PROPOXYPHENE SCREEN,URINE NEGATIVE (CUTOFF=300); THC SCREEN,URINE 20 NG/ML PRESUMPTIVE POSITIVE (CUTOFF=50)
[2023-05-08 19:58] LABS: AMPHETAMINES SCREEN, URINE NEGATIVE (CUTOFF=500)
[2023-05-08 20:00] LABS: AMORPHOUS SEDIMENT,URINE FEW /hpf (NOT SEEN); BACTERIA,URINE FEW /hpf (FEW); MUCUS,URINE FEW /hpf (FEW); RBC,URINE 0-5 /hpf (0-5); SQUAMOUS EPITHELIAL CELLS,UR 0-5 /hpf (0-5); WBC,URINE 0-5 /hpf (0-5)
[2023-05-08 20:06] LABS: LACTIC ACID 9.9 mmol/L (0.4-2.0)
[2023-05-08] MEDS ORDERED: Factor IX Complex Human 500 UNIT VIAL IV ONE (20:15)
[2023-05-08] MEDS ORDERED: Sodium Chloride 0.9% 500 ML IV ONE (20:17)
[2023-05-08] MEDS ORDERED: Factor IX Complex Human 500 UNIT ONE (20:42)
[2023-05-08 22:13] VITALS: BP 126/80
== END 2023-05-08 20:56 ==
LOC: JD.ED 18:17
DX: S06.2X0A Diffuse traumatic brain injury without loss of consciousness, initial encounter (principal); E87.20 Acidosis, unspecified; R73.9 Hyperglycemia, unspecified; Z79.899 Other long term (current) drug therapy; Z86.16 Personal history of COVID-19; V86.55XA Driver of 3- or 4- wheeled all-terrain vehicle (ATV) injured in nontraffic accident, initial encounter; Y92.410 Unspecified street and highway as the place of occurrence of the external cause
CPT/HCPCS: 31500; 36415; 36600; 43752; 51702; 70450; 70450-26; 71045; 71045-26; 71260; 71260-26; 72125; 72125-26; 74177; 74177-26; 80053; 80306; 80307; 81001; 82803; 83605; 85025; 85610; 85730; 93005; 93010; 96365; 96366; 96368; 96375; 99285; 99285-25; J2250; J2704; J3480; J3490; J7030; J7168; Q9967